=== PATIENT | female | born 1945 | race Native Hawaiian/Other Pacific Islander ===

== ENCOUNTER 2018-06-13 20:40 | Emergency (ER) | payer BC ==
[~2018-06-13] VITALS: Ht 162.6 cm; Wt 63.5 kg
[2018-06-13] MEDS ORDERED: ACYCLOVIR800 MG PO (21:02)
[2018-06-13] MEDS ORDERED: NOXAFIL100 MG PO (21:02)
[2018-06-13] MEDS ORDERED: LEVOFLOXACIN500 MG PO (21:03)
[2018-06-13] MEDS ORDERED: LEVO0.0218 PO (21:04)
[2018-06-13 22:13] LABS: POTASSIUM 3.5 mmol/L (3.6-5.2)
[2018-06-13 22:34] LABS: PLATELET COUNT 19 K/uL (152-353)
[2018-06-13 23:56] VITALS: BP 116/55; TEMP 98.4
== END 2018-06-13 23:59 | disposition home or self-care (01) ==
LOC: ED 20:40
PROVIDERS: Family Medicine
DX: R50.9 Fever, unspecified (principal); R10.31 Right lower quadrant pain; D46.9 Myelodysplastic syndrome, unspecified
CPT/HCPCS: 36415; 80053; 81000; 83605; 85027; 87040; 87502; 87651; 99283

== ENCOUNTER 2019-04-15 09:09 | Outpatient (CLI) | payer BC ==
[~2019-04-15 09:09] MED LIST: ACYCLOVIR800 MG PO; LEVO0.0218 PO; LEVOFLOXACIN500 MG PO; NOXAFIL100 MG PO
[2019-04-15 09:39] LABS: POTASSIUM 3.5 mmol/L (3.6-5.2)
== END 2019-04-15 21:30 | disposition home or self-care (01) ==
LOC: LABW 09:09
DX: D46.Z Other myelodysplastic syndromes (principal); Z94.81 Bone marrow transplant status
CPT/HCPCS: 36415; 80053

== ENCOUNTER 2021-01-17 17:12 | Emergency (ER) | payer BC ==
[~2021-01-17] VITALS: Ht 162.6 cm; Wt 63.5 kg
[2021-01-17 17:57] LABS: PLATELET COUNT 319 K/uL (152-353)
[2021-01-17 18:06] LABS: POTASSIUM 3.6 mmol/L (3.6-5.2)
[2021-01-17 20:00] VITALS: BP 112/61; TEMP 97.5
== END 2021-01-17 20:00 | disposition home or self-care (01) ==
LOC: ED 17:12
PROVIDERS: Emergency Medicine
DX: R11.2 Nausea with vomiting, unspecified (principal)
CPT/HCPCS: 36415; 80053; 85027; 96360; 96375; 99284; J2405

== ENCOUNTER 2021-07-04 09:06 | Outpatient (CLI) | payer BC ==
[2021-07-04 09:25] LABS: PLATELET COUNT 156 K/uL (152-353)
[2021-07-04 09:53] LABS: POTASSIUM 2.5 mmol/L (3.6-5.2)
== END 2021-07-04 18:57 | disposition home or self-care (01) ==
LOC: LABW 09:06
PROVIDERS: ATTEND Nurse Practitioner
DX: D46.9 Myelodysplastic syndrome, unspecified (principal); Z94.81 Bone marrow transplant status
CPT/HCPCS: 36415; 80053; 83615; 83735; 84100; 85027

== ENCOUNTER 2021-07-10 09:51 | Outpatient (CLI) | payer BC | END 2021-07-10 19:29 | disposition home or self-care (01) | LOC: LABW 09:51 | PROVIDERS: ATTEND Nurse Practitioner | DX: D46.Z Other myelodysplastic syndromes (principal); Z94.81 Bone marrow transplant status | CPT/HCPCS: 36415; 80053; 83735; 84100 ==